=== PATIENT | female | born 1990 | race Caucasian/White ===

== ENCOUNTER 2018-09-21 21:10 | Emergency (ER) | payer BC ==
[2018-09-21 21:27] VITALS: BP 162/87
[2018-09-21] MEDS ORDERED: Nitrofurantoin Macrocrystals* 50 MG CAP PO ONE (21:43)
--- NOTE | 2018-09-21 21:45 | UC ---
Complaint Female HPI - HPI Summary HPI Summary: C/O UTI symptoms for 3 days. Having dysturia with frequency and bladder spasms. No fevers or back pain. - History Of Current Complaint Chief Complaint: UCGU Stated Complaint: URINARY CONCERN Hx Obtained From: Patient Hx Last Menstrual Period: 09/09/18 ?: No Onset/Duration: Gradual Onset, Lasting Days - 3, Still Present Timing: Constant Severity Initially: Mild Severity Currently: Moderate Pain Intensity: 7 Character: Burning, Cramping Aggravating Factor(s): Urination Associated Signs And Symptoms: Positive: Negative - Allergies/Home Medications Allergies/Adverse Reactions: Allergies Allergy/AdvReac Type Severity Reaction Status Date / Time No Known Allergies Allergy Verified 09/21/18 21:24 Home Medications: Home Medications Pumpkin Seed Extract/Soy Germ [Azo Bladder Control Capsule] 1 cap PO ONCE [History Confirmed 09/21/18] PMH/Surg Hx/FS Hx/Imm Hx Previously Healthy: Yes - Surgical History Surgical History: None - Family History Known Family History: Negative: Cardiac Disease - Social History Occupation: Employed Full-time Lives: With Family Alcohol Use: Occasionally Substance Use Type: None Smoking Status (MU): Never Smoked Tobacco Review of Systems All Other Systems Reviewed And Are Negative: Yes Genitourinary: Positive: Dysuria, Frequency, Urgency Physical Exam Triage Information Reviewed: Yes Appearance: Well-Appearing, No Pain Distress, Well-Nourished Vital Signs: Initial Vital Signs Temp 98.5 F 09/21/18 21:23 Pulse 109 09/21/18 21:23 Resp 14 09/21/18 21:23 BP 162/87 09/21/18 21:23 Pulse Ox 99 09/21/18 21:23 Vital Signs Reviewed: Yes Eyes: Positive: Conjunctiva Clear Neck exam: Normal Respiratory Exam: Normal Cardiovascular Exam: Normal Abdomen Description: Negative: Nontender - suprapubic pressure, CVA Tenderness ( R), CVA Tenderness (L) Bowel Sounds: Positive: Present Musculoskeletal Exam: Normal Neurological Exam: Normal Psychological Exam: Normal Skin Exam: Normal Complaint Female Dx - Differential Dx/Diagnosis Differential Diagnosis/HQI/PQRI: Cervicitis, Ureteral Stone, Urinary Tract Infection Provider Diagnosis: UTI (urinary tract infection) Discharge - Sign-Out/Discharge Documenting (check all that apply): Patient Departure All imaging exams completed and their final reports reviewed: No Studies - Discharge Plan Condition: Stable Disposition: HOME Prescriptions: Nitrofurantoin Monohyd/M-Cryst [Macrobid 100 mg Capsule] 100 mg PO BID #10 cap Patient Education Materials: Urinary Tract Infection in Women (ED), Nitrofurantoin Combination (By mouth) Referrals: Forrest Hester MD [Primary Care Provider] - - Billing Disposition and Condition Condition: STABLE Disposition: Home
== END 2018-09-21 21:51 | disposition home or self-care (01) ==
LOC: UCCORT 21:10
DX: N39.0 Urinary tract infection, site not specified (principal); B96.20 Unspecified Escherichia coli [E. coli] as the cause of diseases classified elsewhere
CPT/HCPCS: 81003; 87077; 87086; 87186; 99202; A9270-GY; G0463

== ENCOUNTER 2019-04-04 15:41 | Emergency (ER) | payer BC ==
--- OUTSIDE RECORDS SUMMARY | 2019-04-04 15:54 | XMS REPORT | Continuity of Care Document ---
:1990 External Reference #:[id number] Author Name Lakesha Hester NP Address [address] [place] [address] Care Team Providers Name Role Phone Lakesha Hester NP Care Team Information Communications Writer Unavailable Payers Date Identification Numbers Payment Provider Subscriber Effective: 2013 Policy Number: [id number] [facility] [address] [place] Expires: 2014 PayID: [id number] [address] [address] VIVIAN Ernst [phone] Policy Number: [id number] [employer] Myra Argueta PayID: [id number] [address] [address] [place] [address] Problems Active Problems Provider Date Well child visit Alissa Mccain MD Onset: 05/21/2006 Family History Date Family Member(s) Observation Comments Father Good Health Mother Good Health Children 1 Siblings 2 A&W Social History Type Date Description Comments Sex Unknown Marital Status Lives With Mother And Father Lives With Younger Brother Lives With Younger Sister Smoke-Free Home is not smoke-free Pets 2 dogs Occupation Sales ETOH Use 05/09/2016 Occasionally consumes alcohol Tobacco Use Start: Unknown Patient has never smoked Recreational Drug Use Denies Drug Use Allergies, Adverse Reactions, Alerts Description No Known Drug Allergies Medications Active Medications SIG Qnty Indications Ordering Provider Date Sertraline HCL 1 and 1/2 by 135tabs F41.9 Lakesha Hester, 03/15/2019 50mg mouth every day [employer] Tablets History Medications Sertraline HCL 1 by mouth in 30tabs F41.9 Mir, 03/07/2019 - 25mg the am LAUREL Crowder 03/15/2019 Tablets No Active Medications Unknown 05/09/2016 - 03/07/2019 Hydrocortisone apply twice a 30gm L20.9 Forrest Hester, 07/09/2015 - 2.5% Cream day to affected 05/09/2016 areas Azithromycin 2 po qd x 1 day 6tabs 462 Mir 10/13/2013 - 250mg then 1 po qd x LAUREL Crowder 05/09/2016 Tablets 4 days Amoxicillin 1 po bid 20tabs 462 Forrest Hester, 11/23/2012 - 875mg Tablets 05/09/2016 Durable Medical Goods tennis elbow 1units 726.32 Mir 01/05/2012 - miguel Crowder NP 05/09/2016 Durable Medical Goods cock-up wrist 1units 354.0 Mir 10/21/2011 - miguel Crowder NP 05/09/2016 Mee 28 Day 1 PO qd 3Packs Forrest Hester, 11/25/2006 - 0.03mg;3 mg 05/09/2016 Tablets Work Note out of work 10/14 847.2 Mir 10/02/2004 - return thursday LAUREL Crowder 05/09/201610/17 Out Of Sports until thursday 847.2 Nikia Tran 10/02/2004 - 10/07/04 MATILDA Mims 05/09/2016 Westcort apply sparingly 30units Forrest Hester, 08/11/2002 - .2% Cream bid - tid prn 04/30/2004 Ortho-Novum as directed 1units Forrest Hester, 07/20/2002 - 04/30/2004 Medications Administered in Office Medication SIG Qnty Indications Ordering Provider Date Lakesha Solis NP 07/13/2018 Injection PPD Nurse Schedule Loc 8 11/14/2010 Injection Forrest Solis MD 05/26/2008 Injection PPD Nikia Tran PA 05/18/2006 Injection Nikia Banuelos PA 05/23/1993 Injection Immunizations CPT Code Status Date Vaccine Lot # [id number] Given 02/16/2019 Tdap (Adacel) Ages 7 And Above Only [id number] 71934 Given 07/16/2018 MMR Virus Immunization [id number] 59024 Given 07/01/2018 Influenza Vac, Quadrivalent, Split, 0.5mL Dosage, [id number] Im Use 79153 Given 07/09/2015 Influenza Vac, Quadrivalent, Split, 0.5mL Dosage, [id number] Im Use 35506 Given 05/26/2008 Tdap (Adacel) Ages 7 And Above Only 36755 Given 12/13/2002 Immunization Td 7 Yrs Or Older 30599 Given 12/12/1999 Hepatitis B Vac Ped/Adolescent 3 Dose Schedule 69325 Given 07/15/1999 Hepatitis B Vac Ped/Adolescent 3 Dose Schedule 29645 Given 06/13/1999 Hepatitis B Vac Ped/Adolescent 3 Dose Schedule 61594 Given 05/23/1993 MMR Virus Immunization 01396 Given 07/22/1990 Hib HbOC Conjugate 4 Dose Schedule 48496 Given 03/12/1990 IPV / Poliomyelitis Immunization 36259 Given 03/12/1990 DTaP Immunization 7 Yrs & Younger 36189 Given 10/01/1989 IPV / Poliomyelitis Immunization 90151 Given 10/01/1989 DTaP Immunization 7 Yrs & Younger 61175 Given 06/05/1989 MMR Virus Immunization 68488 Given 1988 DTaP Immunization 7 Yrs & Younger 07892 Given 1988 IPV / Poliomyelitis Immunization 72229 Given 1988 DTaP Immunization 7 Yrs & Younger 55314 Given 1988 IPV / Poliomyelitis Immunization 83713 Given 1988 DTaP Immunization 7 Yrs & Younger Vital Signs Date Vital Result Comment 03/29/2019 11:24am Body Temperature 97.8 F Weight 206.00 lb Heart Rate 71 /min BP Systolic 116 mmHg BP Diastolic 64 mmHg Respiratory Rate 17 /min Height 65 inches 5'5" O2 % BldC Oximetry 97 % BMI (Body Mass Index) 34.3 kg/m2 03/15/2019 11:09am Body Temperature 98.2 F Weight 211.00 lb Heart Rate 95 /min BP Systolic 124 mmHg BP Diastolic 60 mmHg Respiratory Rate 14 /min Height 65 inches 5'5" O2 % BldC Oximetry 98 % BMI (Body Mass Index) 35.1 kg/m2 03/07/2019 4:28pm Body Temperature 97.3 F Weight 212.00 lb Heart Rate 96 /min BP Systolic 118 mmHg BP Diastolic 60 mmHg Respiratory Rate 12 /min Height 65 inches 5'5" O2 % BldC Oximetry 99 % BMI (Body Mass Index) 35.3 kg/m2 02/16/2019 3:34pm Body Temperature 99.1 F Weight 211.00 lb Heart Rate 91 /min BP Systolic 122 mmHg BP Diastolic 76 mmHg Respiratory Rate 17 /min Height 64 inches 5'4" O2 % BldC Oximetry 95 % BMI (Body Mass Index) 36.2 kg/m2 Urine Dipstick - Blood neg Urine Dipstick - Protein neg Urine Dipstick - Glucose neg Urine Dipstick - Leukocytes neg 07/13/2018 12:24pm Body Temperature 98.1 F Weight 197.00 lb Heart Rate 87 /min BP Systolic 134 mmHg BP Diastolic 76 mmHg Respiratory Rate 17 /min 10/15/2017 10:47am Body Temperature 99.5 F Weight 184.00 lb Heart Rate 84 /min BP Systolic 124 mmHg BP Diastolic 74 mmHg Height 64 inches 5'4" O2 % BldC Oximetry 97 % BMI (Body Mass Index) 31.6 kg/m2 11/11/2016 10:23am BP Systolic 134 mmHg BP Diastolic 80 mmHg 11/07/2016 11:42am Body Temperature 98.6 F Weight 187.00 lb Heart Rate 60 /min BP Systolic 130 mmHg BP Diastolic 80 mmHg Height 65.5 inches 5'5.50" BMI (Body Mass Index) 30.6 kg/m2 05/09/2016 10:46am Body Temperature 98.7 F Weight 178.00 lb Heart Rate 60 /min BP Systolic 120 mmHg BP Diastolic 64 mmHg Height 65.5 inches 5'5.50" BMI (Body Mass Index) 29.2 kg/m2 Urine Dipstick - Blood NEGATIVE Urine Dipstick - Protein NEGATIVE Urine Dipstick - Glucose NEGATIVE Urine Dipstick - Leukocytes NEGATIVE 07/09/2015 2:26pm Body Temperature 99.1 F Weight 195.00 lb Heart Rate 76 /min BP Systolic 118 mmHg BP Diastolic 84 mmHg 10/13/2013 3:25pm Body Temperature 99.7 F Weight 198.00 lb BP Systolic 128 mmHg BP Diastolic 82 mmHg O2 % BldC Oximetry 97 % 97% After TX 11/23/2012 4:16pm Body Temperature 97.9 F Weight 196.00 lb BP Systolic 139 mmHg BP Diastolic 82 mmHg 01/05/2012 9:08am Weight 174.00 lb BP Systolic 120 mmHg BP Diastolic 68 mmHg 11/04/2011 8:09am Weight 174.00 lb BP Systolic 120 mmHg BP Diastolic 76 mmHg 10/21/2011 8:41am Body Temperature 98.9 F Weight 175.00 lb BP Systolic 122 mmHg BP Diastolic 76 mmHg Height 65.75 inches 5'5.75" BMI (Body Mass Index) 28.5 kg/m2 05/26/2008 11:51am Weight 199.00 lb BP Systolic 144 mmHg BP Diastolic 88 mmHg Height 66 inches 5'6" BMI (Body Mass Index) 32.1 kg/m2 Right Visual Acuity Distance 20/70 With Contacts. Left Visual Acuity Distance 20/50 05/21/2006 3:25pm Body Temperature 98.4 F Weight 201.00 lb Weight Percentile >95th BP Systolic 118 mmHg BP Diastolic 62 mmHg Height 66 inches 5'6" Height Percentile 75 % BMI (Body Mass Index) 32.4 kg/m2 Body Mass Index Percentile 95 % 10/02/2004 5:42pm Body Temperature 99.6 F Weight 180.00 lb Weight Percentile >95th Heart Rate 88 /min BP Systolic 146 mmHg BP Diastolic 72 mmHg Respiratory Rate 24 /min 04/30/2004 7:30pm Body Temperature 98.4 F Weight 175.00 lb Weight Percentile >95th Heart Rate 100 /min BP Systolic 138 mmHg BP Diastolic 73 mmHg Height 65.5 inches 5'5.50" Height Percentile 71 % BMI (Body Mass Index) 28.7 kg/m2 Body Mass Index Percentile 95 % 04/25/2003 10:58am Weight 166.00 lb Weight Percentile >95th Heart Rate 108 /min BP Systolic 130 mmHg BP Diastolic 76 mmHg Respiratory Rate 18 /min Height 66 inches 5'6" Height Percentile 80 % BMI (Body Mass Index) 26.8 kg/m2 Results Test Date Facility Test Result H/L Range Note Laboratory test finding 03/15/2019 [facility] TSH 0.67 uIU/mL 0.35-4.94 CBC with Auto Diff-fcmg 03/15/2019 [facility] WBC 8.0 K/uL 4.1-11.0 RBC 4.40 M/uL 4.00-5.40 Hemoglobin 13.1 gm/dL 12.0-16.0 Hematocrit 39.3 % 36.0-47.0 MCV 89.3 fL 80.0-97.0 MCH 29.9 pg 27.0-32.0 MCHC 33.5 g/dL 32.0-36.0 RDW 13.9 % 11.5-14.5 PLT Count 252 K/ul 140-400 MPV 9.7 FL 7.1-10.7 Neutrophil 72.0 % 35.0-75.0 Lymphocyte 21.0 % 16.0-52.0 Monocyte 5.4 % 2.0-10.0 Eosinophil 1.3 % 0.0-5.0 Basophil 0.3 % 0.0-4.0 Abs Neutrophils 5.7 K/uL 2.1-8.0 Abs Lymphocytes 1.7 K/uL 0.8-5.5 Abs Monocytes 0.4 K/uL 0.1-1.0 Abs Eosinophils 0.1 K/uL 0.0-0.5 Abs Basophils 0.0 K/uL 0.0-0.3 Basic (BMP) 03/15/2019 [facility] Sodium 142 mmol/L 135-146 1 Potassium 3.9 mmol/L 3.5-5.2 Chloride# 107 mmol/L 97-110 2 Carbon Dioxide 27 mmol/L 24-34 Glucose 92 mg/dL 70-105 BUN 9 mg/dL 6-26 Creatinine 0.6 mg/dL 0.5-1.4 Calcium 9.1 mg/dL 8.5-10.5 3 Female Egfr 121 >60 4 Male Egfr 133 >60 5 Anion Gap 8 mmol/L 5-15 6 Measles,Mumps,Rubella Panel-RL 07/13/2018 [facility] Rubella Igg AB POSITIVE AI 7 Measles Igg AB POSITIVE AI 8 Mumps Igg (Immune) NEGATIVE AI 9 Lipid 07/01/2018 [facility] Cholesterol 140 mg/dL 50-199 Triglycerides 49 mg/dL 30-200 HDL 71 mg/dL 35-85 10 Chol/ HDL Ratio 2.0 ratio Low 3.7-5.6 VLDL 10 mg/dL 2-29 LDL (Calc) 60 mg/dL 20-99 11 Laboratory test 10/15/2017 [facility] Throat Culture Microbiology res 12 finding <SEE NOTE> Laboratory test 05/09/2016 [facility] TSH 2.37 uIU/mL 0.35-4. 13 finding 94 Comprehensive 05/09/2016 [facility] Sodium 139 mmol/L 134-142 Metabolic (CMP) Potassium 3.7 mmol/L 3.5-5.2 Chloride 104 mmol/L 97-109 Carbon Dioxide 27 mmol/L 24-34 Glucose 56 mg/dL Low 70-105 BUN 9 mg/dL 6-26 Creatinine 0.6 mg/dL 0.5-1.4 Calcium 9.3 mg/dL 8.5-10.2 Total Protein 7.3 g/dL 6.0-8.0 Albumin 4.5 g/dL 3.6-4.9 Globulin 2.8 g/dL 2.0-3.5 A/G Ratio 1.6 Ratio 1.0-2.2 Total Bilirubin 0.6 mg/dL 0.1-1.3 Alkaline Phosphatase 53 U/L 24-140 Alt 12 U/L 3-42 Ast 16 U/L 8-42 Anion Gap 12 mmol/L 6-14 Yolanda Egfr >60 >60 14 Non Yolanda Egfr >60 >60 15 CBC With Auto Diff 05/09/2016 [facility] WBC 6.6 K/uL 4.1-11.0 RBC 4.72 M/uL 4.00-5.40 Hemoglobin 14.1 gm/dL 12.0-16.0 Hematocrit 43.2 % 36.0-47.0 MCV 91.5 fL 80.0-97.0 MCH 29.9 pg 27.0-32.0 MCHC 32.7 g/dL 32.0-36.0 RDW 13.6 % 11.5-14.5 PLT Count 275 K/ul 140-400 Neutrophil 73.7 % 35.0-75.0 Lymphocyte 19.3 % 16.0-52.0 Monocyte 5.2 % 2.0-10.0 Eosinophil 1.1 % 0.0-5.0 Basophil 0.7 % 0.0-4.0 Abs Neutrophils 4.8 K/uL 2.1-8.0 Abs Lymphocytes 1.3 K/uL 0.8-5.5 Abs Monocytes 0.3 K/uL 0.1-1.0 Abs Eosinophils 0.1 K/uL 0.0-0.5 Abs Basophils 0.0 K/uL 0.0-0.3 Lipid 05/09/2016 [facility] Cholesterol 126 mg/dL 50-199 Triglycerides 58 mg/dL 30-200 HDL 75 mg/dL 35-85 16 Chol/ HDL Ratio 1.7 ratio Low 3.7-5.6 VLDL 12 mg/dL 2-29 LDL (Calc) 39 mg/dL 20-99 17 Laboratory test 11/23/2012 [facility] Throat Culture Microbiology res 18 , 19 finding <SEE NOTE> Basic (BMP) 10/21/2011 [facility] Sodium 139 mmol/L 135-144 20 Potassium 4.2 mmol/L 3.5-5.1 Chloride 108 mmol/L High 97-107 Carbon Dioxide 26 mmol/L 23-33 Glucose 91 mg/dL 70-105 BUN 11 mg/dL 7-25 Creatinine 0.6 mg/dL 0.6-1.2 Calcium 9.2 mg/dL 8.6-10.3 Anion Gap 9 mmol/L 8-16 BUN/CR 20 ratio 12-20 Non Yolanda Egfr >60 >60 21 Yolanda Egfr >60 >60 22 CBC With Auto Diff 10/21/2011 [facility] WBC 6.8 K/uL 4.1-11.0 RBC 4.49 M/uL 4.00-5.40 Hemoglobin 13.6 gm/dL 12.0-16.0 Hematocrit 40.3 % 36.0-47.0 MCV 89.7 fL 80.0-97.0 MCH 30.3 pg 27.0-32.0 MCHC 33.8 g/dL 32.0-36.0 RDW 13.3 % 11.5-14.5 PLT Count 253 K/ul 140-400 Neutrophil 66.5 % 35.0-75.0 Lymphocyte 24.7 % 16.0-52.0 Monocyte 5.7 % 2.0-10.0 Eosinophil 2.5 % 0.0-5.0 Basophil 0.6 % 0.0-4.0 Abs Neutrophils 4.5 K/uL 2.1-8.0 Abs Lymphocytes 1.7 K/uL 0.8-5.5 Abs Monocytes 0.4 K/uL 0.1-1.0 Abs Eosinophils 0.2 K/uL 0.0-0.5 Abs Basophils 0.0 K/uL 0.0-0.3 Arthritis Panel 10/21/2011 [facility] Anastacia Screen Neg Neg Rheumatoid Factor <15 IU/mL (0-15) 23 Esr 5 mm/hr 0-20 Uric Acid 4.1 mg/dL 2.3-7.6 1 Updated reference range on new analyzer 2 Updated reference range on new analyzer 3 Updated reference range 01-19-2019 4 Concerning GFR Guidelines for Americans: Normal function or mild renal disease, if clinically at risk: >/=60 mL/min Moderately decreased: 30-59 Severely decreased: 15-29 Renal failure: <15 There is reduced accuracy above 60ml/min/1.73 m squared, but the numeric value may be clinically useful in the near 60 range 5 Concerning GFR Guidelines: Normal function or mild renal disease, if clinically at risk: >/=60 mL/min Moderately decreased: 30-59 Severely decreased: 15-29 Renal failure: <15 There is reduced accuracy above 60ml/min/1.73 m squared, but the numeric value may be clinically useful in the near 60 range Glomerular Filtration Rate (GFR) is estimated based on the CKD-EPI equation, which assumes a steady state for creatinine as recommended by the National Kidney Disease Education Program in conjunction with the National Institutes of Health and the National Kidney Foundation. Clinical conditions in which it may be necessary to measure GFR by using clearance methods include extremes of age and body size, severe malnutrition or obesity, diseases of skeletal muscle, paraplegia or quadriplegia, vegetarian diet, rapidly changing kidney function, and calculation of the dose of potentially toxic drugs that are excreted by the kidneys. 6 Updated Reference Range -2017 7 IgG antibody to Rubella detected. IgG antibody levels are at a level considered to indicate positive immunity. Unless otherwise specified, testing performed by [facility] [place] [address] 8 IgG antibody to Measles detected. This may indicate that the patient was exposed to Measles through infection or vaccination. Unless otherwise specified, testing performed by [facility] ([facility] [place] [address] 9 No IgG antibodies specific to Mumps detected. Patient presumed NOT to have had a previous exposure to Mumps through infection or vaccination. Unless otherwise specified, testing performed by [facility] ([facility] [place] [address] 10 Per NCEP ATP III Guidelines: Results lower than 40 mg/dL are suggestive of increased risk for coronary artery disease. Results > or=to 60 mg/dL are considered a negative risk factor. 11 Per NCEP ATP III Guidelines: Normal Population <130 Patients with medical conditions: CHD/DM Optimal: <100 Borderline high: 130-159 High: 160-189 Very high: >189 12 Microbiology results RESULT Normal throat yaritza.No beta hemolytic streptococci isolated. 13 This sample is drawn by:[facility] Fast[facility] hours This sample is drawn by:nara Fastin hours This sample is drawn by:nara Fastin hours This sample is drawn by :[facility] hours 14 Concerning GFR Guidelines for Americans: Normal function or mild renal disease, if clinically at risk: >/=60 mL/min Moderately decreased: 30-59 Severely decreased: 15-29 Renal failure: <15 15 Concerning GFR Guidelines: Normal function or mild renal disease, if clinically at risk: >/=60 mL/min Moderately decreased: 30-59 Severely decreased: 15-29 Renal failure: <15 Glomerular Filtration Rate (GFR) is estimated based on the MDRD equation, which assumes a steady state for creatinine as recommended by the National Kidney Disease Education Program in conjunction with the National Institutes of Health and the National Kidney Foundation. Clinical conditions in which it may be necessary to measure GFR by using clearance methods include extremes of age and body size, severe malnutrition or obesity, diseases of skeletal muscle, paraplegia or quadriplegia, vegetarian diet, rapidly changing kidney function, and calculation of the dose of potentially toxic drugs that are excreted by the kidneys. 16 Per NCEP ATP III Guidelines: Results lower than 40 mg/dL are suggestive of increased risk for coronary artery disease. Results > or=to 60 mg/dL are considered a negative risk factor. 17 Per NCEP ATP III Guidelines: Normal Population <130 Patients with medical conditions: CHD/DM Optimal: <100 Borderline high: 130-159 High: 160-189 Very high: >189 18 This sample is drawn by:[facility] 19 Microbiology results RESULT Normal throat yaritza.No beta hemolytic streptococci isolated. 20 This sample is drawn by:[facility] 21 Concerning GFR Guidelines: Normal function or mild renal disease, if clinically at risk: >/=60 mL/min Moderately decreased: 30-59 Severely decreased: 15-29 Renal failure: <15 Glomerular Filtration Rate (GFR) is estimated based on the MDRD equation, which assumes a steady state for creatinine as recommended by the National Kidney Disease Education Program in conjunction with the National Institutes of Health and the National Kidney Foundation. Clinical conditions in which it may be necessary to measure GFR by using clearance methods include extremes of age and body size, severe malnutrition or obesity, diseases of skeletal muscle, paraplegia or quadriplegia, vegetarian diet, rapidly changing kidney function, and calculation of the dose of potentially toxic drugs that are excreted by the kidneys. 22 Concerning GFR Guidelines for Americans: Normal function or mild renal disease, if clinically at risk: >/=60 mL/min Moderately decreased: 30-59 Severely decreased: 15-29 Renal failure: <15 23 Unless otherwise specified, testing performed by [facility] [address] [place] [id number] Procedures Date Code Description Status 10/13/2013 53034 Airway Inhalation Treatment Completed 11/14/2010 61589 Admin Of Inj (Therapeutic Phrophylactic Or Diagnostic Subq Completed Inj Encounters Type Date Location Provider Dx Diagnosis Office Visit 03/15/2019 Lakesha Knutson NP E66.9 Obesity, unspecified 11:00a Z68.35 Body mass index (BMI) 35.0-35.9, adult Z13.29 Encounter for screening for oth suspected endocrine disorder Z13.6 Encounter for screening for cardiovascular disorders Z79.899 Other manager of selection and assessment (current) drug therapy F41.9 Anxiety disorder, unspecified Office Visit 03/07/2019 4:30p Lakesha Knutson NP E66.9 Obesity, unspecified F41.9 Anxiety disorder, unspecified Z68.35 Body mass index (BMI) 35.0-35.9, adult Office Visit 02/16/2019 3:30p Lakesha Knutson NP E66.9 Obesity, unspecified R10.2 Pelvic and perineal pain Z23 Encounter for immunization Z68.36 Body mass index (BMI) 36.0-36.9, adult Z13.31 Encounter for screening for depression Office Visit 07/13/2018 12:15p Lakesha Knutson NP Z23 Encounter for immunization Z11.1 Encounter for screening for respiratory tuberculosis Z00.00 Encntr for general adult medical exam w/o abnormal findings Office Visit 10/15/2017 10:30a Lakesha Knutson, J00 Acute nasopharyngitis [employer] [common cold] J02.9 Acute pharyngitis, unspecified Office Visit 11/11/2016 10:30a Lakesha Knutson, S06.0x0A Concussion without [employer] loss of consciousness, initial encounter Office Visit 11/07/2016 11:45a Lakesha Knutson, S06.0x0A Concussion without [employer] loss of consciousness, initial encounter Office Visit 05/09/2016 10:30a Forrest Knutson Z00.00 Encntr for general MD adult medical exam w/o abnormal findings M12.80 Oth specific arthropathies, NEC, unsp site Z68.29 Body mass index (BMI) 29.0-29.9, adult Office Visit 07/09/2015 2:00p Forrest Knutson MD L20.9 Atopic dermatitis, unspecified Z23 Encounter for immunization Office Visit 10/13/2013 3:30p Lakesha Knutson NP 462 Pharyngitis Acute 466.0 Bronchitis Acute Office Visit 11/23/2012 4:15p Forrest Knutson MD 462 Pharyngitis Acute Office Visit 01/05/2012 9:00a Lakesha Knutson NP 354.0 Carpal Tunnel Syndrome 726.32 Epicondylitis Lateral Office Visit 11/04/2011 8:00a Lakesha Knutson NP 354.0 Carpal Tunnel Syndrome Office Visit 10/21/2011 8:45a Lakesha Knutson NP 842.09 Sprains & Strains Wrist & Hand Other 840.9 Sprains & Strains Shoulder & Upper Arm Unspec V82.1 Screening For Rheumatoid Arthritis V78.1 Screening Deficiency Anemia Other & Unspec Office Visit 05/26/2008 11:45a Forrest Knutson MD V70.0 Exam (Adult ) General Medical Routine AT Health Care Facility V74.1 Screening Examination Pulmonary Tuberculosis V06.1 Idpixavzzi-Mmqpaup-Zvuavahs Combined (DTaP) Office Visit 05/21/2006 3:00p Alissa Marino MD V70.0 Exam (Adult ) General Medical Routine AT Health Care Facility V20.2 Exam Or Child Routine Health Check Office Visit 10/02/2004 5:45p Nikia Colindres PA 847.2 Sprains & Strains Lumbar Office Visit 04/30/2004 7:45p Nikia Colindres PA V20.2 Exam Or Child Routine Health Check Office Visit 12/13/2002 4:15p Nikia Colindres PA V20.2 Exam Infant Or Child Routine Health Check V07.2 Prophylactic Immunotherapy Office Visit 07/20/2002 5:15p Forrest Knutson MD 626.0 Menstruation Absence Office Visit 06/16/2002 4:30p Forrest Knutson MD 626.0 Menstruation Absence Office Visit 11/11/2001 11:30a Rachid Campos MD 691.8 Dermatitis Atopic & Related Conditions Other Office Visit 01/21/2001 3:30p Forrest Knutson MD Office Visit 11/02/2000 5:00p Forrest Knutson MD Office Visit 10/12/2000 11:15a Forrest Knutson MD Office Visit 04/27/2000 4:00p Rachid Campos MD Plan of Treatment Future Appointment(s):04/29/2019 10:30 am - Lakesha Hester [employer] at [place]2018 - Lakesha Hester NPE66.9 Obesity, ixuxfwworgcZ62.9 Anxiety disorder, unspecifiedComments:increased to 79ngK47.34 Body mass index (BMI) 34.0-34.9, adult
--- OUTSIDE RECORDS SUMMARY | 2019-04-04 15:54 | XMS REPORT | Continuity of Care Document ---
:1990 External Reference #:[id number] Author Name Lakesha Hester NP Address [address] [place] [address] Care Team Providers Name Role Phone Lakesha Hester NP Care Team Information Debrander Unavailable Payers Date Identification Numbers Payment Provider Subscriber Effective: 2013 Policy Number: [id number] [facility] Ppo [place] Expires: 2014 PayID: [id number] [address] [address] VIVIAN Ernst [phone] Policy Number: [id number] [employer] Myra Argueta PayID: [id number] [address] [address] [place] [address] Problems Active Problems Provider Date Well child [...] Indications Ordering Provider Date Sertraline HCL 1 by mouth 90tabs F41.9 Lakesha Hester, 03/15/2019 50mg every day KILN FIREMAN Tablets History Medications Sertraline HCL 1 by [...] CPT Code Status Date Vaccine Lot # [id number] Given 02/16/2019 Tdap (Adacel) Ages 7 And Above Only [id number] 07300 Given 07/16/2018 MMR Virus Immunization [id number] 55921 Given 07/01/2018 Influenza Vac, Quadrivalent, Split, 0.5mL Dosage, [id number] Im Use 75971 Given 07/09/2015 Influenza Vac, Quadrivalent, Split, 0.5mL Dosage, [id number] Im Use 80564 Given 05/26/2008 Tdap (Adacel) Ages 7 And Above Only 84127 Given 12/13/2002 Immunization Td 7 Yrs Or Older 04610 Given 12/12/1999 Hepatitis B Vac Ped/Adolescent 3 Dose Schedule 48834 Given 07/15/1999 Hepatitis B Vac Ped/Adolescent 3 Dose Schedule 46970 Given 06/13/1999 Hepatitis B Vac Ped/Adolescent 3 Dose Schedule 48489 Given 05/23/1993 MMR Virus Immunization 69938 Given 07/22/1990 Hib HbOC Conjugate 4 Dose Schedule 54962 Given 03/12/1990 IPV / Poliomyelitis Immunization 70621 Given 03/12/1990 DTaP Immunization 7 Yrs & Younger 99638 Given 10/01/1989 IPV / Poliomyelitis Immunization 31752 Given 10/01/1989 DTaP Immunization 7 Yrs & Younger 91671 Given 06/05/1989 MMR Virus Immunization 87509 Given 1988 DTaP Immunization 7 Yrs & Younger 83401 Given 1988 IPV / Poliomyelitis Immunization 93186 Given 1988 DTaP Immunization 7 Yrs & Younger 76303 Given 1988 IPV / Poliomyelitis Immunization 51751 Given 1988 DTaP Immunization 7 Yrs & Younger Vital Signs Date Vital Result Comment 03/15/2019 11:09am Body Temperature 98.2 F Weight [...] H/L Range Note Laboratory test finding 03/15/2019 [facility] TSH <pending> Measles,Mumps,Rubella 07/13/2018 [facility] Rubella Igg AB POSITIVE AI 1 Panel-RL Measles Igg AB POSITIVE AI 2 Mumps Igg (Immune) NEGATIVE AI 3 Lipid 07/01/2018 [facility] Cholesterol 140 mg/dL 50-199 Triglycerides 49 mg/dL 30-200 HDL 71 mg/dL 35-85 4 Chol/ HDL Ratio 2.0 ratio Low 3.7-5.6 VLDL 10 mg/dL 2-29 LDL (Calc) 60 mg/dL 20-99 5 Laboratory test 10/15/2017 [facility] Throat Culture Microbiology res 6 finding <SEE NOTE> Laboratory test 05/09/2016 [facility] TSH 2.37 uIU/mL 0.35-4. 7 finding 94 Comprehensive 05/09/2016 [facility] Sodium 139 [...] 12 mmol/L 6-14 Yolanda Egfr >60 >60 8 Non Yolanda Egfr >60 >60 9 CBC With Auto Diff 05/09/2016 [facility] WBC 6.6 K/uL 4.1-11.0 RBC 4.72 M/uL [...] Abs Basophils 0.0 K/uL 0.0-0.3 Lipid 05/09/2016 [facility] Cholesterol 126 mg/dL 50-199 Triglycerides 58 mg/dL 30-200 HDL 75 mg/dL 35-85 10 Chol/ HDL Ratio 1.7 ratio Low 3.7-5.6 VLDL 12 mg/dL 2-29 LDL (Calc) 39 mg/dL 20-99 11 Laboratory test 11/23/2012 [facility] Throat Culture Microbiology res 12 , 13 finding <SEE NOTE> Basic (BMP) 10/21/2011 [facility] Sodium 139 mmol/L 135-144 14 Potassium 4.2 mmol/L 3.5-5.1 Chloride 108 mmol/L High 97-107 Carbon Dioxide 26 mmol/L 23-33 Glucose 91 mg/dL 70-105 BUN 11 mg/dL 7-25 Creatinine 0.6 mg/dL 0.6-1.2 Calcium 9.2 mg/dL 8.6-10.3 Anion Gap 9 mmol/L 8-16 BUN/CR 20 ratio 12-20 Non Yolanda Egfr >60 >60 15 Yolanda Egfr >60 >60 16 CBC With Auto Diff 10/21/2011 [facility] WBC 6.8 K/uL 4.1-11.0 RBC 4.49 M/uL [...] Basophils 0.0 K/uL 0.0-0.3 Arthritis Panel 10/21/2011 [facility] Anastacia Screen Neg Neg Rheumatoid Factor <15 IU/mL (0-15) 17 Esr 5 mm/hr 0-20 Uric Acid 4.1 mg/dL 2.3-7.6 1 IgG antibody to Rubella detected. IgG antibody levels are at a level considered to indicate positive immunity. Unless otherwise specified, testing performed by [facility] [address] [address] 2 IgG antibody to Measles detected. This may indicate that the patient was exposed to Measles through infection or vaccination. Unless otherwise specified, testing performed by [facility] [address] [place] [address] 3 No IgG antibodies specific to Mumps detected. Patient presumed NOT to have had a previous exposure to Mumps through infection or vaccination. Unless otherwise specified, testing performed by [facility] [address] [place] [address] 4 Per NCEP ATP III Guidelines: Results lower than 40 mg/dL are suggestive of increased risk for coronary artery disease. Results > or=to 60 mg/dL are considered a negative risk factor. 5 Per NCEP ATP III Guidelines: Normal Population <130 Patients with medical conditions: CHD/DM Optimal: <100 Borderline high: 130-159 High: 160-189 Very high: >189 6 Microbiology results RESULT Normal throat yaritza.No beta hemolytic streptococci isolated. 7 This sample is drawn by:jlarry Fastin hours This sample is drawn by:jlarry Fastin hours This sample is drawn by:jlarry Fastin hours This sample is drawn by :jk Fastin hours 8 Concerning GFR Guidelines for Americans: Normal function or mild renal disease, if clinically at risk: >/=60 mL/min Moderately decreased: 30-59 Severely decreased: 15-29 Renal failure: <15 9 Concerning GFR Guidelines: Normal function or mild [...] drugs that are excreted by the kidneys. 10 Per NCEP ATP III Guidelines: Results lower than 40 mg/dL are suggestive of increased risk for coronary artery disease. Results > or=to 60 mg/dL are considered a negative risk factor. 11 Per NCEP ATP III Guidelines: Normal Population <130 Patients with medical conditions: CHD/DM Optimal: <100 Borderline high: 130-159 High: 160-189 Very high: >189 12 This sample is drawn by:VIDA 13 Microbiology results RESULT Normal throat yaritza.No beta hemolytic streptococci isolated. 14 This sample is drawn by:DHN 15 Concerning GFR Guidelines: Normal function or [...] that are excreted by the kidneys. 16 Concerning GFR Guidelines for Americans: Normal function or mild renal disease, if clinically at risk: >/=60 mL/min Moderately decreased: 30-59 Severely decreased: 15-29 Renal failure: <15 17 Unless otherwise specified, testing performed by [facility] [address] [place] [address] Procedures Date Code Description Status 10/13/2013 35940 Airway Inhalation Treatment Completed 11/14/2010 27089 Admin Of Inj (Therapeutic Phrophylactic Or Diagnostic Subq Completed Inj Encounters Type Date Location Provider Dx Diagnosis Office Visit 03/07/2019 Lakesha Knutson NP E66.9 Obesity, unspecified 4:30p F41.9 Anxiety disorder, unspecified Z68.35 Body mass [...] 10/15/2017 10:30a Lakesha Knutson, J00 Acute nasopharyngitis KILN FIREMAN [common cold] J02.9 Acute pharyngitis, unspecified Office Visit 11/11/2016 10:30a Lakesha Knutson, S06.0x0A Concussion without KILN FIREMAN loss of consciousness, initial encounter Office Visit 11/07/2016 11:45a Lakesha Knutson, S06.0x0A Concussion without KILN FIREMAN loss of consciousness, initial encounter Office Visit 05/09/2016 10:30a Forrest Knutson, Z00.00 Encntr for general MD adult medical [...] Facility V74.1 Screening Examination Pulmonary Tuberculosis V06.1 [facility] Combined (DTaP) Office Visit 05/21/2006 3:00p Alissa Marino MD V70.0 Exam (Adult ) General Medical Routine AT Health Care Facility V20.2 Exam Infant Or Child Routine Health Check Office Visit 10/02/2004 5:45p Nikia Colindres PA 847.2 Sprains & Strains Lumbar Office Visit 04/30/2004 7:45p Nikia Colindres PA V20.2 Exam Or Child Routine Health Check Office Visit 12/13/2002 4:15p Nikia Colindres PA V20.2 Exam Or Child Routine Health Check V07.2 Prophylactic [...] Rachid Campos MD Plan of Treatment Future Appointment(s):03/29/2019 11:00 am - Lakesha Hester NP at [facility]2018 - Lakesha Hester NPE66.9 Obesity, ckhvrajgbhgA13.35 Body mass index (BMI ) 35.0-35.9, depzzR05.29 Encounter for screening for oth suspected endocrine sjyvqukzD03.6 Encounter for screening for cardiovascular bbusprxttX64.899 Other superintendent terminal (current) drug pfosmakQ96.9 Anxiety disorder, unspecifiedNew Medication:Sertraline HCL 50 mg - 1 by mouth every dayComments:increased to 50mgFollow up:2 weeks
--- OUTSIDE RECORDS SUMMARY | 2019-04-04 15:54 | XMS REPORT | Continuity of Care Document ---
:1990 External Reference #:[id number] Author Name Lakesha Hester NP Address [address] [place] [address] Care Team Providers Name Role Phone Lakesha Hester NP Care Team Information Dairy Products Maker Unavailable Payers Date Identification Numbers Payment Provider Subscriber Effective: 2013 Policy Number: [id number] [facility] Ppo [place] Expires: 2014 PayID: [id number] [address] [address] VIVIAN Ernst [id number] Policy Number: [id number] [employer] Myra Argueta PayID: [id number] [address] [address] [place] [address] Problems Active Problems Provider Date Well child [...] Provider Date Sertraline HCL 1 by mouth in 30tabs F41.9 Lakesha Hester, 03/07/2019 25mg the 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 INSPECTOR Tablets History Medications No Active Medications Unknown 05/09/2016 - 03/07/2019 Hydrocortisone apply twice a day 30gm L20.9 Mir, 07/09/2015 - 2.5% Cream to affected areas MD Forrest 05/09/2016 Azithromycin 2 po qd x 1 day 6tabs 462 Mir, 10/13/2013 - 250mg then 1 po qd x 4 LAUREL Crowder 05/09/2016 Tablets days Amoxicillin 1 po bid 20tabs 462 Mir, 11/23/2012 - 875mg Tablets MD Forrest 05/09/2016 D[employer]s tennis elbow 1units 726.32 Mir, 01/05/2012 - miguel Crowder NP 05/09/2016 [employer] cock-up wrist 1units 354.0 Mir, 10/21/2011 - miguel Crowder NP 05/09/2016 Mee 28 Day 1 PO qd 3Packs Mir, 11/25/2006 - 0.03mg;3 mg MD Forrest 05/09/2016 Tablets Work Note out of work 10/14 847.2 Mir, 10/02/2004 - return thursday LAUREL Crowder 05/09/201610/17 Out Of Sports until thursday 847.2 Marc, 10/02/2004 - 10/07/04 MATILDA Parra 05/09/2016 Westcort apply sparingly 30units [facility], 08/11/2002 - .2% Cream bid - tid prn MD Forrest 04/30/2004 Ortho-Novum as directed 1units Mir, 07/20/2002 - MD Forrest 04/30/2004 Medications Administered in Office Medication SIG Qnty Indications Ordering Provider Date Lakesha Solis NP 07/13/2018 Injection PPD Nurse Schedule Loc 8 11/14/2010 Injection Forrest Solis MD 05/26/2008 Injection PPD Nikia Tran PA 05/18/2006 Injection Nikia Banuelos PA 05/23/1993 Injection Immunizations CPT Code Status Date Vaccine Lot # [id number] Given 02/16/2019 Tdap (Adacel) Ages 7 And Above Only [id number] 66453 Given 07/16/2018 MMR Virus Immunization [id number] 05819 Given 07/01/2018 Influenza Vac, Quadrivalent, Split, 0.5mL Dosage, [id number] Im Use 65227 Given 07/09/2015 Influenza Vac, Quadrivalent, Split, 0.5mL Dosage, [id number] Im Use 52723 Given 05/26/2008 Tdap (Adacel) Ages 7 And Above Only 75264 Given 12/13/2002 Immunization Td 7 Yrs Or Older 85751 Given 12/12/1999 Hepatitis B Vac Ped/Adolescent 3 Dose Schedule 76236 Given 07/15/1999 Hepatitis B Vac Ped/Adolescent 3 Dose Schedule 08628 Given 06/13/1999 Hepatitis B Vac Ped/Adolescent 3 Dose Schedule 49762 Given 05/23/1993 MMR Virus Immunization 57994 Given 07/22/1990 Hib HbOC Conjugate 4 Dose Schedule 88150 Given 03/12/1990 IPV / Poliomyelitis Immunization 79598 Given 03/12/1990 DTaP Immunization 7 Yrs & Younger 94431 Given 10/01/1989 IPV / Poliomyelitis Immunization 25963 Given 10/01/1989 DTaP Immunization 7 Yrs & Younger 23897 Given 06/05/1989 MMR Virus Immunization 95129 Given 1988 DTaP Immunization 7 Yrs & Younger 98464 Given 1988 IPV / Poliomyelitis Immunization 40840 Given 1988 DTaP Immunization 7 Yrs & Younger 81819 Given 1988 IPV / Poliomyelitis Immunization 97812 Given 1988 DTaP Immunization 7 Yrs & Younger Vital Signs Date Vital Result Comment 03/07/2019 4:28pm Body Temperature 97.3 F Weight [...] Date Facility Test Result H/L Range Note Measles,Mumps,Rubella 07/13/2018 [facility] Rubella Igg AB POSITIVE AI 1 Panel-RL Measles Igg AB POSITIVE AI 2 Mumps Igg (Immune) NEGATIVE AI 3 Lipid 07/01/2018 [facility] Cholesterol 140 mg/dL 50-199 Triglycerides 49 mg/dL 30-200 HDL 71 mg/dL 35-85 4 Chol/ HDL Ratio 2.0 ratio Low 3.7-5.6 VLDL 10 mg/dL 2-29 LDL (Calc) 60 mg/dL 20-99 5 Laboratory test 10/15/2017 [facility] Throat Culture Microbiology res <SEE 6 finding NOTE> Lipid 05/09/2016 [facility] Cholesterol 126 mg/dL 50-199 7 Triglycerides 58 mg/dL 30-200 HDL 75 mg/dL 35-85 8 Chol/ HDL Ratio 1.7 ratio Low 3.7-5.6 VLDL 12 mg/dL 2-29 LDL (Calc) 39 mg/dL 20-99 9 CBC With Auto Diff 05/09/2016 [facility] WBC [...] K/uL 0.0-0.5 Abs Basophils 0.0 K/uL 0.0-0.3 Comprehensive Metabolic (CMP) 05/09/2016 [facility] Sodium 139 mmol/L 134- 142 Potassium 3.7 mmol/L 3.5-5.2 Chloride 104 mmol/L [...] 12 mmol/L 6-14 Yolanda Egfr >60 >60 10 Non Yolanda Egfr >60 >60 11 Laboratory test 05/09/2016 [facility] TSH 2.37 uIU/mL 0.35-4.94 finding Laboratory test 11/23/2012 [facility] Throat Microbiology res 12, 13 finding Culture <SEE NOTE> Basic (BMP) 10/21/2011 [facility] Sodium [...] >60 16 CBC With Auto Diff 10/21/2011 [facility] W[facility] 6.8 K/uL 4.1-11.0 RBC 4.49 M/uL [...] immunity. Unless otherwise specified, testing performed by [facility] [place] [address] 2 IgG antibody to Measles detected. This may indicate that the patient was exposed to Measles through infection or vaccination. Unless otherwise specified, testing [place] [address] 3 No IgG antibodies specific to Mumps detected. Patient presumed NOT to have had a previous exposure to Mumps through infection or vaccination. Unless otherwise specified, testing performed by [facility] [place] [address] 4 Per NCEP ATP III Guidelines: Results [...] streptococci isolated. 7 This sample is drawn by:nara Fastin hours This sample is drawn by:nara Fastin hours This sample is drawn by:nara Fastin hours This sample is drawn by :jk Fastin hours 8 Per NCEP ATP III Guidelines: Results lower than 40 mg/dL are suggestive of increased risk for coronary artery disease. Results > or=to 60 mg/dL are considered a negative risk factor. 9 Per NCEP ATP III Guidelines: Normal Population <130 Patients with medical conditions: CHD/DM Optimal: <100 Borderline high: 130-159 High: 160-189 Very high: >189 10 Concerning GFR Guidelines for Americans: Normal function or mild renal disease, if clinically at risk: >/=60 mL/min Moderately decreased: 30-59 Severely decreased: 15-29 Renal failure: <15 11 Concerning GFR Guidelines: Normal function or mild [...] drugs that are excreted by the kidneys. 12 This sample is drawn by:[place] 13 Microbiology results RESULT Normal throat yaritza.No [...] Unless otherwise specified, testing performed by [email or web address] [address] [place] [address] Procedures Date Code Description Status 10/13/2013 85782 Airway Inhalation Treatment Completed 11/14/2010 51203 Admin Of Inj (Therapeutic Phrophylactic Or Diagnostic Subq Completed Inj Encounters Type Date Location Provider Dx Diagnosis Office Visit 02/16/2019 Lakesha Knutson NP E66.9 Obesity, unspecified 3:30p R10.2 Pelvic and perineal pain Z23 Encounter for immunization Z68.36 Body mass index (BMI) 36.0-36.9, adult Z13.31 Encounter for screening for depression Office Visit 07/13/2018 12:15p Lakesha Knutson NP Z23 Encounter for immunization Z11.1 Encounter for screening for respiratory tuberculosis Z00.00 Encntr for general adult medical exam w/o abnormal findings Office Visit 10/15/2017 10:30a Lakesha Knutson, J00 Acute nasopharyngitis AXLE INSPECTOR [common cold] J02.9 Acute pharyngitis, unspecified Office Visit 11/11/2016 10:30a Lakesha Knutson, S06.0x0A Concussion without AXLE INSPECTOR loss of consciousness, initial encounter Office Visit 11/07/2016 11:45a Lakesha Knutson S06.0x0A Concussion without AXLE INSPECTOR loss of consciousness, initial encounter Office Visit [...] Facility V74.1 Screening Examination Pulmonary Tuberculosis V06.1 Seyahwserf-Xxcfeqy-Zgjtogad Combined (DTaP) Office Visit 05/21/2006 3:00p Alissa [...] Rachid Campos MD Plan of Treatment Future Appointment(s):03/15/2019 11:00 am - Lakesha Hester NP at [facility]2018 - Lakesha Hester NPE66.9 Obesity, otyjeyutsayI84.9 Anxiety disorder, unspecifiedNew Medication:Sertraline HCL 25 mg - 1 by mouth in the amFollow up: 1 weekZ68.35 Body mass index (BMI) 35.0-35.9, adult
[2019-04-04 16:22] VITALS: BP 126/95
--- NOTE | 2019-04-04 16:49 | UC ---
Complaint Female HPI - HPI Summary HPI Summary: Pt presents with c/o sudden onset of urinary frequency, urgency and dysuria that began yesterday morning. - History Of Current Complaint Chief Complaint: UCGU Stated Complaint: URINARY COMPLAINT Time Seen by Provider: 04/04/19 16:19 Hx Obtained From: Patient Hx Last Menstrual Period: 03/25 ?: No Onset/Duration: Sudden Onset, Lasting Days Timing: Constant Severity Initially: Mild Severity Currently: Mild Pain Intensity: 5 Character: Sharp, Dull, Burning Aggravating Factor(s): Urination Alleviating Factor(s): Nothing Associated Signs And Symptoms: Positive: Back Pain - Risk Factors Ectopic Risk Factor: Negative Ovarian Torsion Risk Factor: Reproductive Age - Allergies/Home Medications Allergies/Adverse Reactions: Allergies Allergy/AdvReac Type Severity Reaction Status Date / Time No Known Allergies Allergy Verified 04/04/19 16:16 Home Medications: Home Medications Acetaminophen TAB* [Tylenol TAB*] 650 mg PO ONCE PRN 04/04/19 [History Confirmed 04/04/19] Sertraline* [Zoloft*] 75 mg PO DAILY 04/04/19 [History Confirmed 04/04/19] PMH/Surg Hx/FS Hx/Imm Hx Previously Healthy: Yes - Surgical History Surgical History: None - Family History Known Family History: Negative: Cardiac Disease - Social History Occupation: Employed Full-time Lives: With Family Alcohol Use: Occasionally Substance Use Type: None Smoking Status (MU): Never Smoked Tobacco Have You Smoked in the Last Year: No Review of Systems All Other Systems Reviewed And Are Negative: Yes Constitutional: Positive: Negative Skin: Positive: Negative Eyes: Positive: Negative ENT: Positive: Negative Respiratory: Positive: Negative Cardiovascular: Positive: Negative Gastrointestinal: Positive: Negative Genitourinary: Positive: Dysuria, Frequency, Urgency Motor: Positive: Negative Neurovascular: Positive: Negative Musculoskeletal: Positive: Negative Neurological: Positive: Negative Psychological: Positive: Negative Is Patient Immunocompromised?: No Physical Exam Triage Information Reviewed: Yes Appearance: Well-Appearing Vital Signs: Initial Vital Signs Temp 99.6 F 04/04/19 16:18 Pulse 78 04/04/19 16:18 Resp 20 04/04/19 16:18 BP 126/95 04/04/19 16:18 Pulse Ox 100 04/04/19 16:18 Vital Signs Reviewed: Yes Eye Exam: Normal ENT Exam: Normal Dental Exam: Normal Neck exam: Normal Respiratory Exam: Normal Cardiovascular Exam: Normal Abdominal Exam: Normal Abdomen Description: Positive: Nontender Musculoskeletal Exam: Normal Neurological Exam: Normal Psychological Exam: Normal Skin Exam: Normal Complaint Female Dx - Differential Dx/Diagnosis Differential Diagnosis/HQI/PQRI: Urinary Tract Infection Provider Diagnosis: UTI (urinary tract infection) Discharge - Sign-Out/Discharge Documenting (check all that apply): Patient Departure All imaging exams completed and their final reports reviewed: No Studies - Discharge Plan Condition: Stable Disposition: HOME Prescriptions: Cephalexin CAP* [Keflex 500 CAP*] 500 mg PO Q8H #21 cap Phenazopyridine TAB* [Pyridium 100 mg TAB*] 100 mg PO Q8H #3 tab Patient Education Materials: Urinary Tract Infection in Women (ED) Referrals: Forrest Hester MD [Primary Care Provider] - If Needed Additional Instructions: Please follow up with your PCP as needed. If your symptoms worsen, please go to the closest Emergency Room as soon as possible. - Billing Disposition and Condition Condition: STABLE Disposition: Home
== END 2019-04-04 17:00 | disposition home or self-care (01) ==
LOC: UCCORT 15:41
DX: N39.0 Urinary tract infection, site not specified (principal)
CPT/HCPCS: 81003; 84702; 87077; 87086; 87186; 99212; G0463

== ENCOUNTER 2019-04-19 12:54 | Emergency (ER) | payer BC ==
[2019-04-19 13:53] VITALS: BP 127/73
--- NOTE | 2019-04-19 14:43 | UC ---
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 - History Of Current Complaint Chief Complaint: UCUpperExtremity Stated Complaint: LEFT HAND CONCERN Time Seen by Provider: 04/19/19 14:33 Hx Obtained From: Patient Hx Last Menstrual Period: 03/27/19 Onset/Duration: Gradual Onset, Lasting Days Severity Initially: Moderate Severity Currently: Moderate Pain Intensity: 7 Pain Scale Used: 0-10 Numeric Character Of Pain: Aching, Throbbing Aggravating Factor(s): Movement, Other - putting pressure on MCP joint Alleviating Factor(s): Rest, OTC Meds Associated Signs And Symptoms: Positive: Swelling Related History: Dominant Hand Right Hands: 1 - tender/swollen - Allergies/Home Medications Allergies/Adverse Reactions: Allergies Allergy/AdvReac Type Severity Reaction Status Date / Time No Known Allergies Allergy Verified 04/19/19 13:53 PMH/Surg Hx/FS Hx/Imm Hx Previously Healthy: Yes - Surgical History Surgical History: None - Family History Known Family History: Positive: Hypertension Negative: Cardiac Disease - Social History Alcohol Use: Occasionally Substance Use Type: None Smoking Status (MU): Never Smoked Tobacco Have You Smoked in the Last Year: No Review of Systems All Other Systems Reviewed And Are Negative: Yes Constitutional: Positive: Negative Skin: Positive: Negative Eyes: Positive: Negative ENT: Positive: Negative Respiratory: Positive: Negative Cardiovascular: Positive: Negative Gastrointestinal: Positive: Negative Genitourinary: Positive: Negative Motor: Positive: Negative Neurovascular: Positive: Negative Musculoskeletal: Positive: Arthralgia - left 5th MCP Neurological: Positive: Negative Physical Exam Triage Information Reviewed: Yes Appearance: Well-Appearing, No Pain Distress, Well-Nourished Vital Signs: Initial Vital Signs Temp 98.1 F 04/19/19 13:47 Pulse 65 04/19/19 13:47 Resp 16 04/19/19 13:47 BP 127/73 04/19/19 13:47 Pulse Ox 100 04/19/19 13:47 Vital Signs Reviewed: Yes Eyes: Positive: Conjunctiva Clear ENT: Positive: Hearing grossly normal. Negative: Nasal drainage, TMs normal, Trismus, Muffled voice, Hoarse voice Dental Exam: Normal Neck: Positive: Supple, Nontender, No Lymphadenopathy Respiratory: Positive: Lungs clear, Normal breath sounds, No respiratory distress, No accessory muscle use Cardiovascular: Positive: RRR, No Murmur Musculoskeletal: Positive: ROM Intact, No Edema, Edema @ - see image Neurological: Positive: Alert Psychological Exam: Normal Skin Exam: Normal Diagnostics - Radiology No standard instances Radiology Interpretation Completed By: Radiologist Summary of Radiographic Findings: no fx Hand/Wrist Course/Dx - Differential Dx/Diagnosis Provider Diagnosis: Left hand tendonitis Discharge - Sign-Out/Discharge Documenting (check all that apply): Patient Departure All imaging exams completed and their final reports reviewed: Yes - Discharge Plan Condition: Stable Disposition: HOME Patient Education Materials: Tendinitis (ED) Referrals: Forrest Hester MD [Primary Care Provider] - Jerardo Loza MD [Medical Doctor] - If Needed Additional Instructions: no fracture noted try to rest left hand ice tender area twice daily ibuprofen recheck if not improved by early next week - Billing Disposition and Condition Condition: STABLE Disposition: Home
== END 2019-04-19 15:14 | disposition home or self-care (01) ==
LOC: UCCORT 12:54
DX: M77.9 Enthesopathy, unspecified (principal)
CPT/HCPCS: 99211; G0463